=== PATIENT | female | born 2000 | race Two or more races ===

== ENCOUNTER 2018-10-09 20:15 | Observation (INO) | payer MEDICAID ==
[~2018-10-09] VITALS: Ht 162.6 cm; Wt 68.0 kg
[~2018-10-09 20:15] MED LIST: PREN-96 PO
[2018-10-09] MEDS: TERBUTALINE SULFATE 1 MG/ML 1ML VIAL SC SCH ×2 (21:11→22:35)
[2018-10-09] MEDS ORDERED: BETAMETHASONE ACET (6MG/ML) 5ML VIAL IM ONE (21:45)
[2018-10-09] MEDS ORDERED: NIFEdipine 10 MG CAP PO ONE (21:45)
== END 2018-10-09 23:42 | disposition home or self-care (01) | DRG 563 ==
LOC: LDRP 20:15
PROVIDERS: ADMIT Obstetrics & Gynecology; ATTEND Obstetrics & Gynecology
DX: O60.03 Preterm labor without delivery, third trimester (principal); Z3A.34 34 weeks gestation of pregnancy
CPT/HCPCS: 59025; 81002; 94760; 96372; G0378; J0702; J3105

== ENCOUNTER 2018-10-10 22:40 | Observation (INO) | payer MEDICAID ==
[~2018-10-10] VITALS: Ht 162.6 cm; Wt 68.5 kg
[2018-10-10] MEDS ORDERED: BETAMETHASONE ACET (6MG/ML) 5ML VIAL IM ONE (23:00)
== END 2018-10-10 23:58 | disposition home or self-care (01) | DRG 563 ==
LOC: LDRP 22:40
PROVIDERS: ADMIT Obstetrics & Gynecology; ATTEND Obstetrics & Gynecology
DX: O60.03 Preterm labor without delivery, third trimester (principal); Z3A.34 34 weeks gestation of pregnancy
CPT/HCPCS: 59025; 81002; 96372; G0378

== ENCOUNTER 2018-11-08 23:06 | Observation (INO) | payer MEDICAID ==
[~2018-11-08] VITALS: Ht 162.6 cm; Wt 68.5 kg
== END 2018-11-09 00:20 | disposition home or self-care (01) | DRG 566 ==
LOC: LDRP 23:06
PROVIDERS: ADMIT Specialist; ATTEND Specialist
DX: O62.9 Abnormality of forces of labor, unspecified (principal); Z3A.38 38 weeks gestation of pregnancy
CPT/HCPCS: 59025; 81002; G0378

== ENCOUNTER 2019-09-19 14:47 | Emergency (ER) | payer MEDICAID ==
[~2019-09-19] VITALS: Ht 162.6 cm; Wt 54.4 kg
[2019-09-19] MEDS ORDERED: AMMONIA 0.33 ML INHALANT IN ONE ×2 (15:13→15:30)
[2019-09-19 15:15] LABS: Basophils # (auto) 0 10 ^3/uL (0-0.2); Basophils % (auto) 0.5 % (0.0-2.0); Eosinophils # (auto) 0 10 ^3/uL (0-0.8); Eosinophils % (auto) 0.2 % (0.0-7.0); Hematocrit 41.7 % (36.0-46.0); Hemoglobin 13.9 g/dL (12.2-16.2); Lymphocytes # (auto) 1.8 10 ^3/uL (0.4-5.4); Lymphocytes % (auto) 31.8 % (10.0-50.0); Mean Corpuscular Hemoglobin 29.4 pg (28.0-32.0); Mean Corpuscular Hgb Conc. 33.3 g/dL (32.0-36.0); Mean Corpuscular Volume 88.2 fL (80.0-100.0); Monocytes # (auto) 0.5 10 ^3/uL (0-1.3); Monocytes % (auto) 8.5 % (0.0-12.0); Neutrophils # (auto) 3.4 10 ^3/uL (1.6-8.6); Nucleated Red Blood Cells % 0.1 %; Platelet Count (auto) 276 10^3/uL (140-450); Red Blood Cells 4.73 10^6/uL (4.0-5.20); Red Cell Distribution Width 14.4 % (11.8-14.3); White Blood Cell 5.7 10^3/uL (4.4-10.8)
[2019-09-19 15:20] LABS: Urine WBC None Seen /hpf (0 - 5)
[2019-09-19] MEDS ORDERED: FLUMAZENIL 0.1 MG/ML INJ 10ML MDV IV ONE (15:30)
[2019-09-19 15:39] LABS: Salicylate < 1.7 mg/dL (2.8-20.0)
[2019-09-19 15:40] LABS: Alanine Aminotransferase 26 U/L (13-56); Albumin 4.4 g/dL (3.4-5.0); Anion Gap 8 (5-15); Aspartate Aminotransferase 26 U/L (15-37); BUN/Creatinine Ratio 6.3; Blood Urea Nitrogen 5 mg/dL (7-18); Calcium 8.8 mg/dL (8.5-10.1); Carbon Dioxide 24 mmol/L (21-32); Chloride 111 mmol/L (98-107); GFR African American 116 mL/min; GFR Non-African American 96 mL/min; Glucose 92 mg/dL (74-106); Magnesium 2.5 mg/dL (1.6-2.6); Potassium 3.3 mmol/L (3.5-5.1); Sodium 143 mmol/L (136-145)
[2019-09-19 15:45] LABS: Urine Bacteria NONE SEEN /hpf (None Seen); Urine Blood Negative /uL (Negative); Urine Specific Gravity 1.007 (1.001-1.035)
[2019-09-19 15:45] LABS: Alkaline Phosphatase 79 U/L (45-117); Bilirubin, Total 0.7 mg/dL (0.2-1.0); Total Protein 8.6 g/dL (6.4-8.2)
[2019-09-19] MEDS ORDERED: ALBUTEROL SULF 2.5 MG/0.5ML(0.5%) NEB SOLN NEB ONE (15:45)
[2019-09-19] MEDS ORDERED: IPRATROPIUM BROM 0.5 MG/2.5ML INH SOL NEB ONE (15:45)
[2019-09-19 15:48] LABS: Amphetamine Screen, Urine NEGATIVE (NEGATIVE); Barbiturate Scree,Urine NEGATIVE (NEGATIVE); Benzodiazephine Screen, Urine POSITIVE (NEGATIVE); Cannabinoid Screen, Urine POSITIVE (NEGATIVE); Cocaine Screen, Urine POSITIVE (NEGATIVE); Opiate Scree,Urine NEGATIVE (NEGATIVE); Phencyclidine Screen, Urine NEGATIVE (NEGATIVE)
[2019-09-19 15:50] LABS: Acetaminophen < 2.0 ug/mL (10-30)
[2019-09-21] MEDS ORDERED: POTASSIUM EFFERVESENT TAB 25 MEQ PO ONE (16:15)
[2019-09-22] MEDS ORDERED: POTASSIUM EFFERVESENT TAB 25 MEQ ONE (21:08)
[2019-09-23 17:15] VITALS: BP 122/89
== END 2019-09-23 17:46 | disposition short-term general hospital (02) ==
LOC: ER 14:47
DX: G93.41 Metabolic encephalopathy (principal); R00.0 Tachycardia, unspecified; F14.10 Cocaine abuse, uncomplicated; F12.10 Cannabis abuse, uncomplicated; F10.10 Alcohol abuse, uncomplicated; Z91.5 Personal history of self-harm; Z20.828 Contact with and (suspected) exposure to other viral communicable diseases; Y90.8 Blood alcohol level of 240 mg/100 ml or more
CPT/HCPCS: 36415; 70450; 71045; 80053; 80307; 80320; 80329; 81001; 81025; 83735; 84484; 85025; 94640; 96374; 99291; C9803; J7030; J7644; U0003

== ENCOUNTER 2024-04-10 14:08 | Emergency (ER) | payer MEDICAID ==
[~2024-04-10] VITALS: Ht 165.1 cm; Wt 74.4 kg
--- NOTE | 2024-04-10 16:00 | ED.PDOC ---
History of Present Illness HPI Comments 24-year-old female presents with a chief complaint of nasal congestion and cough x 4 days. Patient states that she has been experiencing rhinorrhea and a dry cough, but has not taken any medications due to being . Patient mentions that she is currently 35 weeks . No other symptoms or modifying factors present at this time. Chief Complaint: Flu like Time Seen by MD: 15:54 Reviewed Notes: Medications, Allergies Allergies: Coded Allergies: NO KNOWN ALLERGIES (Unverified , 09/03/15) Verified with pt., no known allergies Home Meds Reported Medications Vit W/ Ferrous Fumara ( One Daily) Daily Tab, 1 TAB PO DAILY, #90 TAB 3 Refills 06/04/15 Information Source: Patient Mode of Arrival: Ambulatory Severity: Moderate Timing: Days Duration: Since onset Prehospital treatment: None Past Medical History PAST MEDICAL HISTORY: Denies Surgical History: Denies all surgeries VOLLEYBALL COACH History: No Pertinent VOLLEYBALL COACH History Social History Smoker: Cigarettes Alcohol: Sober Drugs: Marijuana, Methamphetamine Lives In: Home Constitutional: denies: chills, diaphoresis, fatigue, fever, malaise, sweats, weakness, others EENTM: reports: nose congestion; denies: blurred vision, double vision, ear bleeding, ear discharge, ear drainage, ear pain, ear ringing, eye pain, eye redness, hearing loss, mouth pain, mouth swelling, nasal discharge, nose bleeding, nose pain, photophobia, tearing, throat pain, throat swelling, voice changes, others Respiratory: reports: cough; denies: hemoptysis, orthopnea, SOB at rest, shortness of breath, SOB with excertion, stridor, wheezing, others Cardiovascular: denies: chest pain, dizzy spells, diaphoresis, Dyspnea on exertion, edema, irregular heart beat, left arm pain, lightheadedness, palpitations, PND, syncope, others Gastrointestinal: denies: abdomen distended, abdominal pain, blood streaked bowels, constipated, diarrhea, dysphagia, difficulty swallowing, hematemesis, melena, nausea, poor appetite, poor fluid intake, rectal bleeding, rectal pain, vomiting, others Genitourinary: denies: abnormal vagina bleeding, burning, dyspareunia, dysuria, flank pain, frequency, hematuria, incontinence, pain, , vagina discharge, urgency, others Neurological: denies: dizziness, fainting, headache, left sided numbness, left sided weakness, numbness, paresthesia, pre-existing deficit, right sided numbness, right sided weakness, seizure, speech problems, tingling, tremors, weakness, others Musculoskeletal: denies: back pain, gout, joint pain, joint swelling, muscle pain, muscle stiffness, neck pain, others Integumetry: denies: bruises, change in color, change in hair/nails, dryness, laceration, lesions, lumps, rash, wounds, others Allergic/Immunocompromised: denies: Difficulty Healing, Frequent Infections, Hives, Itching, others Hematologic/Lymphatic: denies: anemia, blood clots, easy bleeding, easy bruising, swollen glands, others Endocrine: denies: excessive hunger, excessive sweating, excessive thirst, excessive urination, flushing, intolerance to cold, intolerance to heat, unexplained weight gain, unexplained weight loss, others Psychiatric: denies: anxiety, bipolar disorder, depression, hopeless, panic disorder, schizophrenia, sleepless, suicidal, others All Other Systems: Reviewed and Negative Physical Exam General Appearance: No Apparent Distress, Normal HEENT: Other (RHINORRHEA) Neck: Full Range of Motion, Non-Tender, Normal, Normal Inspection Respiratory: Chest Non-Tender, Lungs Clear, No Accessory Muscle Use, No Respiratory Distress, Normal Breath Sounds Cardiovascular: No Edema, No JVD, No Murmur, No Gallop, Normal Peripheral Pulses, Regular Rate/Rhythm Breast Exam: Deferred Gastrointestinal: No Organomegaly, Non Tender, No Pulsatile Mass, Normal Bowel Sounds, Soft Genitalia: Deferred Pelvic: Deferred Rectal: Deferred Extremities: No calf tenderness, Normal capillary refill, Normal inspection, Normal range of motion, Non-tender, No pedal edema Neurologic: Alert, post exchange manager II-XII nml as Tested, No Motor Deficits, Normal Affect, Normal Mood, No Sensory Deficits Cerebellar Function: Normal Reflexes: Normal Skin: Dry, Normal Color, Warm Lymphatic: No Adenopathy Was a procedure done? Was a procedure done?: No Differential Dx Considerations may include: Pneumonia, viral syndrome X-Ray, Labs, Meds, VS Vital Signs Date Time Temp Pulse Resp B/P (MAP) Pulse Ox O2 Delivery O2 Flow Rate FiO2 04/10/24 14:56 98.4 104 15 106/63 (77) 97 Lab Test 04/10/24 15:44 Range/Units Influenza Type A Antigen Negative Negative Influenza Type B Antigen Negative Negative SARS-CoV-2 Antigen (Rapid) Negative NEGATIVE Time of 1ST Reevaluation: 16:24 Reevaluation 1ST: Unchanged Patient Education/Counseling: Diagnosis, Treatment, Prognosis Family Education/Counseling: Diagnosis, Treatment, Prognosis Departure 1 Departure Time of Disposition: 16:41 (Patient likely with viral syndrome. Patient's did not have signs or symptoms concerning for pneumonia. We will discharge patient home with outpatient follow up) Impression: Primary Impression: Acute viral syndrome Additional Impression: Qualified Codes: Z3A.35 - 35 weeks gestation of Disposition: 01 HOME / SELF CARE / HOMELESS Condition: Stable Additional Instructions: You likely have a viral illness. It is important to stay well rested and well hydrated. You can take Tylenol as needed for pain and fever. For a sore throat you can drink warm tea with honey. You should follow up with your regular doctor within 1 week to ensure you are doing better. If your symptoms worsen or you have any other concerns please return to the emergency room. Discharged With: Self Critical Care Note Critical Care Time?: No I personally scribed for GILSON MUNOZ MD ([email or web address]) on 04/10/24 at 16:00. Electronically submitted by Landry Hickman ([email or web address]). GILSON MUNOZ MD Apr 10, 2024 16:00
[2024-04-10 16:39] LABS: Rapid Influenza A Negative (Negative); Rapid Influenza B Negative (Negative)
[2024-04-10 16:40] LABS: COVID19 ANTIGEN SOFIA FIA NEGATIVE (NEGATIVE)
[2024-04-10 16:49] VITALS: BP 110/75; PULSE 99; RESP 20; TEMP 98.9; O2SAT 99
== END 2024-04-10 17:33 | disposition home or self-care (01) ==
LOC: ER 14:08
DX: O98.513 Other viral diseases complicating pregnancy, third trimester (principal); F17.210 Nicotine dependence, cigarettes, uncomplicated; F12.90 Cannabis use, unspecified, uncomplicated; F15.90 Other stimulant use, unspecified, uncomplicated; Z3A.35 35 weeks gestation of pregnancy; Z20.822 Contact with and (suspected) exposure to COVID-19
CPT/HCPCS: 36415; 87426; 87804

== ENCOUNTER 2024-05-13 00:12 | Observation (INO) | payer MEDICAID ==
[~2024-05-13] VITALS: Ht 165.1 cm; Wt 63.5 kg
--- NOTE | 2024-05-13 01:11 | DVH ---
ULTRASOUND BIOPHYSICAL PROFILE CLINICAL HISTORY: no PNC,TERM COMPARISON: None TECHNIQUE: Real-time grayscale, color flow and M-mode imaging of the gravid uterus is performed. FINDINGS: Single living intrauterine gestation. Cephalic presentation. Placenta is anterior. heart rate 135 beats per minute. Amniotic fluid index: 14.6cm Biophysical profile: 8 out of 8. (2 breathing, 2 activity, 2 tone, 2 JORDY) IMPRESSION: Biophysical profile scoring 8 out of 8. HS:Y
--- NOTE | 2024-05-13 01:17 | DVH ---
US OB LIMITED CLINICAL HISTORY: NO PNC COMPARISON: None TECHNIQUE: Real-time grayscale, color flow and M-mode imaging of the gravid uterus is performed. FINDINGS: Single living intrauterine gestation. Cephalic presentation. heart rate 132 beats per minute. Average ultrasound age 39 weeks 6 days. Estimated due date 05/14/2024. measurements (cm): BPD 9.8, HC 34.2, AC 36.3, FL 7.7. Estimated weight: 3937g Placenta is anterior. The cervix is not clearly visualized, however, there is no definite evidence o f abruption or previa at this time. Amniotic fluid index 14.6 cm. IMPRESSION: Single living intrauterine gestation as above. HS:Y
--- NOTE | 2024-05-13 01:41 | DVHDS2 ---
Physician Discharge Progress N Final Diagnosis: Early Labor Operations or Procedures: Operations or Procedures S: 24 yo F @ 40.0 wks IUP. Reports feeling contractions every 5 minutes since 2100. Denies VB, LOF, endorses +FM. No PNC. O: VSS EFM: 120s, moderate variability, +accels, -decels TOCO: UCs q2-4min apart SVE: 2/50%/-2 A: 24 yo F @ 40.0 wks IUP Early labor P: DC home kick counts/ labor precautions reviewed. Other Interventions Other Interventions [place] [address] Ph: [phone] DIAGNOSTIC IMAGING Diagnostic Imaging Report : [id number] Signed PATIENT: PEYTON KELLY BIJESSICAAACCT: [id number] UNIT: [id number] : 2000 LOC: [facility] ROOM / BED: [facility] / A AGE / SEX: 24 / F ADM STATUS: ADM IN SERVICE ORDERING PHYSICIAN: SAMSON RODRIGUEZ CNM PROCEDURE(s): BPP - BIOPHYSICAL PROFILE REASON: no PNC,TERM ORDER NUMBER(s): [id number], ACCESSION NUMBER(s): [id number] ULTRASOUND BIOPHYSICAL PROFILE CLINICAL HISTORY: no PNC,TERM COMPARISON: None TECHNIQUE: Real-time grayscale, color flow and M-mode imaging of the gravid uterus is performed. FINDINGS: Single living intrauterine gestation. Cephalic presentation. Placenta is anterior. heart rate 135 beats per minute. Amniotic fluid index: 14.6cm Biophysical profile: 8 out of 8. (2 breathing, 2 activity, 2 tone, 2 JORDY) IMPRESSION: Biophysical profile scoring 8 out of 8. HS:Y ATED BY: ZANE OLIVA MD DICTATED DATE/TIME: 05/13/24108 SIGNED BY: ZANE OLIVA MD SIGNED DATE/TIME: 05/13/24108 CC: [address] [address] Ph: [phone] DIAGNOSTIC IMAGING Diagnostic Imaging Report : [id number] Signed PATIENT: PEYTON KELLYCT: [id number] UNIT: [id number] : 2000 LOC: [facility] ROOM / BED: [facility] / A AGE / SEX: 24 / F ADM STATUS: ADM IN SERVICE ORDERING PHYSICIAN: SAMSON RODRIGUEZ CNM PROCEDURE(s): OBUS - OB ULTRASOUND COMP GTR 14 WKS REASON: NO PNC ORDER NUMBER(s): [id number], ACCESSION NUMBER(s): [id number] US OB LIMITED CLINICAL HISTORY: NO PNC COMPARISON: None TECHNIQUE: Real-time grayscale, color flow and M-mode imaging of the gravid uterus is performed. FINDINGS: Single living intrauterine gestation. Cephalic presentation. heart rate 132 beats per minute. Average ultrasound age 39 weeks 6 days. Estimated due date 05/14/2024. measurements (cm): BPD 9.8, HC 34.2, AC 36.3, FL 7.7. Estimated weight: 3937g Placenta is anterior. The cervix is not clearly visualized, however, there is no definite evidence of abruption or previa at this time. Amniotic fluid index 14.6 cm. IMPRESSION: Single living intrauterine gestation as above. HS:Y ATED BY: ZANE OLIVA MD DICTATED DATE/TIME: 05/13/24114 SIGNED BY: ZANE OLIVA MD SIGNED DATE/TIME: 05/13/24114 CC: Condition on Discharge: Stable Disposition: Home Discharge Instructions: Diet: Regular Activity: No Restrictions, As Tolerated Medications: see med list Follow Up Care: Specialist: Go to nearest hospital when contractions get stronger, SROM, VB, or decreased movement. Discharge Statement: "Patient was advised to return to the ER or call 911 if any headaches, dizz iness, shortness of breath, chest pain, abdominal pain, bleeding, fevers, or worsening of medical condition. Patient was counseled about treatment plan, medications, possible side effects, patientverbalized understanding. All questions were answered to the best of my ability. This discharge took greater then 30 minutes in planning, reviewing documentation, counseling the patient, and discussing with other team members." Visit Coding OBGYN Date of Service: May 13, 2024 Billing Provider: SAMSON RODRIGUEZ CNM CLOTH PRESSER Common Visit Codes: 29630-TBOXCWB OBS CARE (MOD) CLOTH PRESSER Procedure Codes: 09892-01- NON-STRESS TEST SAMSON RODRIGUEZ CNM May 13, 2024 01:41
== END 2024-05-13 01:43 | disposition home or self-care (01) ==
LOC: LDRP 00:12
PROVIDERS: ADMIT Obstetrics & Gynecology; ATTEND Obstetrics & Gynecology
DX: O48.0 Post-term pregnancy (principal); Z98.890 Other specified postprocedural states; Z79.899 Other long term (current) drug therapy; Z3A.40 40 weeks gestation of pregnancy
CPT/HCPCS: 76805; 76819; 81002; G0378; 59025